=== PATIENT | male | born 1960 | race Caucasian/White ===

== ENCOUNTER → 2017-01-21 | Outpatient (REF) ==
--- NOTE | 2017-01-21 16:25 | REP ---
RIGHT KNEE SERIES: Five views right knee performed. No acute fracture or dislocation. There is mild medial joint space narrowing and subchondral sclerosis. Vascular calcifications are seen posteriorly. There is no significant joint effusion. IMPRESSION: Mild degenerative changes. Signed by Dougie Collins MD 01/21/2017 04:26 P
--- NOTE | 2017-01-21 16:27 | REP ---
LEFT SHOULDER: Three views of the left shoulder are performed. There is no evidence of acute fracture or dislocation. There appears to have been resection of the distal end of the clavicle. There is mild joint space narrowing, subchondral sclerosis and spurring at the glenohumeral joint. IMPRESSION: There appears to be resection of the distal end of the clavicle and mild degenerative changes of the glenohumeral joint. Signed by Dougie Collins MD 01/21/2017 04:32 P
== END ==
LOC: M SMT 12:08
PROVIDERS: ATTEND Internal Medicine
DX: M25.561 Pain in right knee (principal); M25.512 Pain in left shoulder